=== PATIENT | female | born 1950 | race Caucasian/White ===

== ENCOUNTER 2016-08-30 06:16 | Inpatient (IN) | payer OTHER, MEDICARE, BC ==
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
--- NOTE | ~2016-08-30 | OR ---
Unit #: [id number] #: [id number] Patient: KYAW FALK [id number] [address] [place], [place] [address] [id number] I MR#: [id number] NAME: KYAW FALK. ROOM: 565 Date of Procedure: 09/02/2016 Admission Date: 08/31/2016 Surgeon: Mina Morales M.D. : 1950 Attending Physician: Jackson Hooks M.D. Primary Care Physician: Bhargavi Harp M.D. OPERATIVE REPORT PREOPERATIVE DIAGNOSIS Left proximal humerus fracture. POSTOPERATIVE DIAGNOSIS Left proximal humerus fracture. PROCEDURES PERFORMED 1. Left proximal humerus open reduction internal fixation. 2. Left long head biceps tendon tenotomy. [employer] Nasim Le CFA. ANESTHESIA General endotracheal. COMPLICATIONS None. SPECIMENS None. DRAINS None. SURGICAL IMPLANTS Renae [employer] proximal humerus locking plate. INDICATIONS FOR PROCEDURE Ms. Falk is a 66-year-old female patient who fell injuring her left shoulder. She was noted to have a significantly displaced proximal humerus fracture. She also has benefit from ORIF of the proximal humerus. The patient wished to proceed with surgery. She was cleared for surgery medically. Risks, benefits, and alternatives were discussed with the patient. Informed consent was obtained. Risks include, but not limited to, infection, bleeding, nerve injury, blood clots, risks associated with anesthesia, need for further surgery, persistent pain, and possibly . DESCRIPTION OF PROCEDURE On 09/02/2016, the patient was seen in preoperative holding area, where her surgical site was marked. Preoperative antibiotics were received. H Unit #: [id number] #: [id number] Patient: KYAW FALK and P consent updated. Preoperative block performed. The patient was taken to operating room and placed on operative table in supine position. General anesthesia was provided without complication. She was carefully moved to beach chair position. Left upper extremity was prepped and draped in typical sterile fashion. Time-out was performed confirming the correct surgical site and procedure. The deltopectoral approach performed the shoulder. Cephalic vein taken with the deltoid laterally. The fracture site identified and debrided. It was then provisionally reduced with K-wires. Fluoroscopy confirmed appropriate relative reduction. Plate was placed and pinned in place. Next, a bicortical shaft screw was placed to secure the shaft to the plate. Proximally, a combination of pegs and multidirectional screws were placed to capture the tuberosities in the head. The tuberosities were intact and there was no significant displacement of the rotator cuff. No sutures were needed through this. Three bicortical screws were placed distally. Multiple screws were placed unicortically through the humeral head. At this point, final imaging was taken of shoulder confirming appropriate reduction of fracture and placement of hardware. The wound was then thoroughly irrigated with normal saline containing bacitracin. Deltopectoral groove repaired with 0 Vicryl suture followed by 2-0 Vicryl for subcutaneous tissues and 3-0 Monocryl subcuticular stitch for skin. Dermabond, Telfa, Tegaderm, and a sling were placed. The patient was subsequently awakened from general anesthesia in stable condition and taken to PACU postoperatively. Also of note, the long head biceps tendon was caught within the fracture site. This was just at the groove. It was significantly enlarged. It was felt that a tenotomy would prevent catching of the tendon within the groove due to the fracture site. The tendon was released. No significant retraction noted. As noted, the patient went to the PACU. She did well. Postoperatively, she will return to the floor. POSTOPERATIVE PLAN The patient will be nonweightbearing in left upper extremity. She denied elbow motion pendulums. She will be on antibiotic protocol and can start DVT prophylaxis and SCDs. No complications were encountered during the surgical procedure. Dictated by... Mina Morales M.D. JOE/nick TD: 09/03/2016 05:08 JOB #: [id number] OPERATIVE REPORT X X PROCEDURE OPERATIVE NOTE
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
--- NOTE | ~2016-08-30 | CR229 ---
[facility] A Service of [facility] RADIOLOGY TEXT RESULTS PATIENT: KYAW GARCIA LOCATION: [facility] 565-01 : 51 UNIT #: [id number] AGE: [address]: Jackson Hooks MD SEX: F ORDER DR: [id number] [facility]. [place], [place] [address] [id number] I MR#: [id number] Acc #: [id number] NAME: KYAW GARCIA : 1950 SEX: F STUDY DATE/TIME: 09/02/2016 21:29 UNIT: [facility] ROOM: [facility] STUDY DESCRIPTION: CR Shoulder Min 2 View Lt Attending Physician: Jackson Hooks M.D. Ordering Physician: Mina Morales M.D. Primary Care Physician: Bhargavi Harp M.D. MEDICAL IMAGING REPORT This report is preliminary unless electronic signature is present EXAM Left shoulder 09/02/2016 INDICATION 66-year-old female with history of shoulder fracture. TECHNIQUE 3 small field of view spot fluoroscopic images from an intraoperative procedure performed by Dr. Morales are submitted for review. No comparisons. FINDINGS Notes indicate that 0.34 minutes of fluoroscopy time was used in the case. 3 images were saved to the [employer] system. Images demonstrate screw and plate fixation of a fracture involving the surgical neck of the humerus. There is no right or left marker. Please refer to the operative report of the surgeon for further details. IMPRESSION 1. Screw and plate fixation of a fracture of the surgical neck of the humerus. Please refer to the operative of the surgeon for further details. 2. Notes indicate 0.34 minutes of fluoroscopy time was used in the case. 3 images from the procedure were saved to the [employer] system. Dictated by... Aj Vargas M.D. THIS IS AN ELECTRONICALLY VERIFIED REPORT Aj Vargas M.D. at 09/02/2016 11:46 AM BETHANY/amelia [facility] A Service of [facility] RADIOLOGY TEXT RESULTS PATIENT: KYAW GARCIA LOCATION: [facility] 565-01 : 51 UNIT #: [id number] AGE: [address]: Jackson Hooks MD SEX: F ORDER DR: TD: 09/02/2016 10:50 JOB #: [id number] MEDICAL IMAGING REPORT COPY
--- NOTE | ~2016-08-30 | EKG ---
PATIENT: KYAW GARCIA UNIT #: [id number] Ventricular Rate: 102 BPM Atrial Rate: 102 BPM P-R Interval: 160 ms QRS Duration: 102 ms Q-T Interval: 450 ms QTC Calculation(Bezet): 586 ms P [place]: 45 degrees Calculated R [place]: 82 degrees Calculated T [place]: 0 degrees Diagnosis Line: Sinus tachycardia Diagnosis Line: Non-specific intra-ventricular conduction delay Diagnosis Line: ST and T wave abnormality, consider inferior Diagnosis Line: ischemia Diagnosis Line: Prolonged QT Diagnosis Line: Abnormal ECG Diagnosis Line: When compared with ECG of 24-JUN-2015 05:52, Diagnosis Line: Vent. rate has increased BY 46 BPM Diagnosis Line: Questionable change in QRS axis Diagnosis Line: T wave inversion now evident in Anterior leads Diagnosis Line: QT has lengthened Diagnosis Line: Confirmed by CAROLYN SIMS MD ([id number]) on Diagnosis Line: 08/31/2016 11:45:58 AM INTERPRETING MD: TEO
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
--- NOTE | ~2016-08-30 | CR229 ---
[facility] A Service of [facility] & [facility] RADIOLOGY TEXT RESULTS PATIENT: KYAW GARCIA LOCATION: [facility] [place] [facility] [id number] : [birth year] UNIT #: [id number] AGE: [address]: Jaycee Ewing MD SEX: F ORDER DR: [id number] [facility] [address]. [place], [place] [address] [id number] I MR#: [id number] Acc #: [id number] NAME: KYAW GARCIA : 1950 SEX: F STUDY DATE/TIME: 08/30/2016 7:30 UNIT: CEDOF ROOM: 65904 STUDY DESCRIPTION: CR Shoulder Min 2 View Lt Attending Physician: Jaycee Ewing M.D. Ordering Physician: Bg Henry M.D. Primary Care Physician: Bhargavi Harp M.D. MEDICAL IMAGING REPORT This report is preliminary unless electronic signature is present EXAM Left shoulder. HISTORY Fall three days ago with left shoulder pain. FINDINGS Three views of the left shoulder were obtained and compared with 08/27/2016. There is a recent fracture involving the humeral head with the humeral shaft having moved proximally and lying alongside the humeral head. It is difficult to tell if it is posterior or anterior on these images, but I believe it is anterior. IMPRESSION Recent fracture through the humeral neck as seen on a previous study 08/27/2016. On the current exam the humeral shaft has moved slightly more anteriorly and proximally as compared to the humeral head than on the previous study. Dictated by... Ricci Anaya M.D. THIS IS AN ELECTRONICALLY VERIFIED REPORT Ricci Anaya M.D. at 08/30/2016 1:15 PM PIYUSH/madai TD: 08/30/2016 10:48 JOB #: [id number] MEDICAL IMAGING REPORT COPY
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
[~2016-08-30 06:16] MED LIST: ABILIFY10 MG PO; ACETAMINOPHEN PO; ACETAMINOPHEN325 MG PO; ACETAMINOPHEN500 M7 PO; ALPRAZOLAM0.5 MG PO; ALPRAZOLAM1 MG PO; AMBIEN PO; AMBIEN10 MG PO; ANEXSIA 7.5/3251 TA1 PO; ASPIR-TRIN325 MG PO; ASPIRIN81 M2 PO; AVANDIA4 MG PO; BACTRIM DS TABL1 TA1 PO; BAYER ASPIRIN PO; BAYER CHEWABLE81 MG PO; BUDEPRION XL300 MG PO; BUMETANIDE1 MG PO; BUMETANIDE2 M1 PO; BUMEX PO; BUMEX1 MG PO; BUPROPION XL300 MG PO; BYDUREON2 MG SQ; BYDUREON2 MG SUBQ; BYETTA5 MCG/0.02 SQ; BYSTOLIC5 MG PO; CARVEDILOL3.125 MG PO; CELEBREX PO; CELEBREX100 MG PO; CLONAZEPAM2 MG PO; COREG3.125 MG PO; FAMOTIDINE PO; FAMOTIDINE20 M1 PO; FERRO-TIME325 MG PO; FISH OIL 1,0001 CAP PO; FLAGYL250 M1 PO; FORFIVO XL450 MG PO; GABAPENTIN300 M2 PO; GABAPENTIN400 M2 PO; GABAPENTIN600 MG PO; GLIPIZIDE10 MG PO; HALCION PO; HALCION0.25 M1 PO; HUMALOG100 U/M2 SQ; HUMALOG100 U/M2 SUBQ; HUMALOG100 U/ML SUBQ; HYDROCODON-ACE1 EAC9 PO; JANUVIA50 MG PO; K-DUR20 ME1 PO; KCL PO; KLONOPIN PO; KLONOPIN1 MG PO; KLONOPIN2 MG PO; LANTUS SOLOSTAR3 ML SQ; LANTUS SOLOSTAR3 ML SUBQ; LANTUS100 U/M1 SUBQ; LASIX PO; LIPITOR20 MG PO; LISINOPRIL PO; LISINOPRIL10 MG PO; LOPID600 MG PO; LORTAB 5/500 TA1 TA1 PO; LOW DOSE ASPIRI81 M1 PO; MELOXICAM15 MG PO; METFORMIN PO; METRONIDAZOLE PO; MOBIC15 MG PO; MONISTAT VG; MUPIROCIN0.9 GM TOP; MYLANTA125 MG PO; NAMENDA10 MG PO; NIACIN500 M1 PO; NITROGLYCERIN0.4 MG SL; NITROSTAT0.4 MG SL; NOVOLOG100 U/ML; NYSTATIN1 GM TOP; OXCARBAZEPINE600 MG PO; PENICILLIN V PO; PEPCID AC20 M2 PO; PEPCID PO; PLAVIX PO; PRILOSEC PO; PRILOSEC40 MG PO; PROBIOTIC1 EAC1 PO; PROBIOTIC1 EAC2 PO; PROZAC PO; SIMETHICONE GA125 MG PO; SIMVASTATIN40 MG PO; TRIAZOLAM0.25 M1 PO; TRIAZOLAM0.25 MG PO; TRICOR145 MG PO; TRILEPTAL PO; TRILEPTAL600 MG PO; TRUBIOTICS; VICODIN 5/1 TAB 5/50 PO; VICOPROFEN 200-1 TAB PO; VISTARIL PO; WELLBUTRIN PO; WELLBUTRIN XL PO; WELLBUTRIN XL150 M1 PO; XANAX0.5 M1 PO; ZANAFLEX4 M1 PO; ZESTRIL5 MG PO; ZOCOR PO; ZOCOR20 MG PO
[2016-08-30 07:05] LABS: POC - CKMB 1.5 ng/mL (0.0-7.9); POC - TROPONIN <0.05 ng/mL (<=0.05)
[2016-08-30 07:18] LABS: BASOPHIL% 0.3 % (0-2.5); EOSINOPHIL# 0.1 X10e3 (0-0.7); HEMOGLOBIN 12.2 gm/dL (12.0-16.0); LYMPHOCYTE# 1.1 X10e3 (1.0-3.5); LYMPHOCYTE% 13.9 % (17.0-45.0); MEAN CELL VOLUME 83.8 FL (83-96); MEAN CORPUSCULAR HEMOGLOBIN 29.1 PG (28-34); MEAN CORPUSCULAR HGB CONC 34.8 g/dL (30-36); MEAN PLATELET VOLUME 8.4 FL (6.5-11.5); MONOCYTE# 0.5 X10e3 (0-1.0); MONOCYTE% 6.5 % (3.0-12.0); NEUTROPHIL# 5.9 X10e3 (1.5-7.1); NEUTROPHIL% 78.3 % (40-75); RED BLOOD COUNT 4.18 X10e (3.90-5.30); RED CELL DISTRIBUTION WIDTH 15.1 % (11.0-15.5); WHITE BLOOD COUNT 7.6 X10e3 (4.0-10.5)
[2016-08-30 07:33] LABS: ALBUMIN SERUM 3.6 g/dL (3.5-5.0); ALKALINE PHOSPHATASE 110 U/L (32-92); ALT (SGPT) 17 U/L (10-40); AST (SGOT) 28 U/L (10-42); BILIRUBIN, DIRECT 0.7 mg/dL (0.0-0.2); BILIRUBIN,TOTAL 2.7 mg/dL (0.2-2.0); BLOOD UREA NITROGEN 12 mg/dL (9-23); CALCIUM SERUM 8.8 mg/dL (8.4-10.2); CARBON DIOXIDE 26 mmol/L (22-31); CHLORIDE 100 mmol/L (100-111); CPK (CREATINE PHOSPHOKINASE) 373 IU/L (26-140); CREATININE SERUM 0.8 mg/dL (0.6-1.4); GLOM FILT RATE Estimated ABOVE60 mL/min (>60); GLUCOSE FASTING 187 mg/dL (70-110); SODIUM 138 mmol/L (135-145)
[2016-08-30 08:04] LABS: DIFF IND YES; PLATELET COUNT 85 X10e3 (140-420)
[2016-08-30 08:17] LABS: URINE SOURCE CLEAN CATCH
[2016-08-30 08:24] LABS: URINE APPEARANCE CLEAR; URINE BILIRUBIN NEG (NEG); URINE BLOOD 2+ (NEG); URINE COLOR YELLOW; URINE GLUCOSE 250 MG/DL (NEG); URINE KETONE 1+ (NEG); URINE LEUKOCYTE ESTERASE NEG (NEG); URINE NITRATE NEG (NEG); URINE PROTEIN 1+ (NEG); URINE SPECIFIC GRAVITY 1.014 (1.003-1.035)
[2016-08-30 08:28] LABS: U HYALINE CASTS AUWI 0-2 /[LPF]; URBCS1 AUWI 0-2 /[HPF] (0-2); URINE BACTERIA AUWI NEG (NEGATIVE); URINE SQUAMOUS EPITHELIAL CELL OCC /[HPF]
[2016-08-30 08:28] LABS: PLATELET ESTIMATE DECREASED (NORMAL)
[2016-08-30 08:43] LABS: CULTURE INDICATED? NO
[2016-08-30] MEDS ORDERED: ZANAFLEX2 MG PO (10:08)
[2016-08-30] MEDS ORDERED: CLONAZEPAM0.5 MG PO (10:10)
[2016-08-30] MEDS ORDERED: KLONOPIN1 MG PO (10:11)
[2016-08-30] MEDS ORDERED: NORVASC PO (11:20)
[2016-08-30] MEDS ORDERED: CELECOXIB200 MG PO (11:21)
[2016-08-30] MEDS ORDERED: ANEXSIA 7.5/3251 TA1 PO (11:22)
[2016-08-30] MEDS ORDERED: LANTUS100 U/ML SUBQ (11:26)
[2016-08-30 20:21] LABS: %MB 0.3 % (0.0-4.0)
[2016-08-31 07:38] LABS: HEMATOCRIT 33.9 % (35.0-45.0); HEMOGLOBIN 11.4 gm/dL (12.0-16.0); MEAN CELL VOLUME 84.9 FL (83-96); MEAN CORPUSCULAR HEMOGLOBIN 28.6 PG (28-34); MEAN CORPUSCULAR HGB CONC 33.7 g/dL (30-36); MEAN PLATELET VOLUME 7.9 FL (6.5-11.5); RED CELL DISTRIBUTION WIDTH 15.2 % (11.0-15.5); WHITE BLOOD COUNT 5.9 X10e3 (4.0-10.5)
[2016-08-31 09:00] LABS: ALBUMIN SERUM 3.2 g/dL (3.5-5.0); ALKALINE PHOSPHATASE 121 U/L (32-92); ALT (SGPT) 18 U/L (10-40); AST (SGOT) 31 U/L (10-42); BILIRUBIN,TOTAL 2.1 mg/dL (0.2-2.0); BLOOD UREA NITROGEN 8 mg/dL (9-23); BUN/CREATININE RATIO 11.42; CALCIUM SERUM 8.2 mg/dL (8.4-10.2); CARBON DIOXIDE 26 mmol/L (22-31); CHLORIDE 104 mmol/L (100-111); CPK (CREATINE PHOSPHOKINASE) 710 IU/L (26-140); CREATININE SERUM 0.7 mg/dL (0.6-1.4); GLOM FILT RATE Estimated ABOVE60 mL/min (>60); GLUCOSE FASTING 133 mg/dL (70-110); MAGNESIUM 2.4 mg/dL (1.6-3.0); PROTEIN TOTAL SERUM 6.1 g/dL (6.0-8.3); SODIUM 140 mmol/L (135-145)
[2016-08-31 09:29] LABS: POTASSIUM 2.4 mmol/L (3.5-5.1)
[2016-09-01 07:05] LABS: HEMOGLOBIN 10.8 gm/dL (12.0-16.0); MEAN CELL VOLUME 85.2 FL (83-96); MEAN CORPUSCULAR HEMOGLOBIN 28.7 PG (28-34); MEAN CORPUSCULAR HGB CONC 33.7 g/dL (30-36); MEAN PLATELET VOLUME 7.9 FL (6.5-11.5); RED BLOOD COUNT 3.75 X10e (3.90-5.30); RED CELL DISTRIBUTION WIDTH 15.2 % (11.0-15.5); WHITE BLOOD COUNT 4.5 X10e3 (4.0-10.5)
[2016-09-01 07:38] LABS: BLOOD UREA NITROGEN 7 mg/dL (9-23); CALCIUM SERUM 8.4 mg/dL (8.4-10.2); CARBON DIOXIDE 23 mmol/L (22-31); CHLORIDE 110 mmol/L (100-111); CREATININE SERUM 0.7 mg/dL (0.6-1.4); GLOM FILT RATE Estimated ABOVE60 mL/min (>60); GLUCOSE FASTING 137 mg/dL (70-110); MAGNESIUM 2.1 mg/dL (1.6-3.0); POTASSIUM 3.2 mmol/L (3.5-5.1); SODIUM 141 mmol/L (135-145)
[2016-09-02 06:52] LABS: BLOOD UREA NITROGEN 9 mg/dL (9-23); CALCIUM SERUM 8.8 mg/dL (8.4-10.2); CARBON DIOXIDE 22 mmol/L (22-31); CHLORIDE 109 mmol/L (100-111); CREATININE SERUM 0.6 mg/dL (0.6-1.4); GLOM FILT RATE Estimated ABOVE60 mL/min (>60); GLUCOSE FASTING 155 mg/dL (70-110); MAGNESIUM 1.9 mg/dL (1.6-3.0); POTASSIUM 3.5 mmol/L (3.5-5.1); SODIUM 141 mmol/L (135-145)
[2016-09-03 05:19] LABS: HEMATOCRIT 30.9 % (35.0-45.0); HEMOGLOBIN 10.6 gm/dL (12.0-16.0); MEAN CELL VOLUME 84.2 FL (83-96); MEAN CORPUSCULAR HEMOGLOBIN 28.8 PG (28-34); MEAN CORPUSCULAR HGB CONC 34.2 g/dL (30-36); MEAN PLATELET VOLUME 7.2 FL (6.5-11.5); RED BLOOD COUNT 3.67 X10e (3.90-5.30); RED CELL DISTRIBUTION WIDTH 15.2 % (11.0-15.5); WHITE BLOOD COUNT 5.7 X10e3 (4.0-10.5)
[2016-09-03 06:06] LABS: BLOOD UREA NITROGEN 8 mg/dL (9-23); CALCIUM SERUM 8.1 mg/dL (8.4-10.2); CARBON DIOXIDE 24 mmol/L (22-31); CHLORIDE 106 mmol/L (100-111); CREATININE SERUM 0.4 mg/dL (0.6-1.4); GLOM FILT RATE Estimated ABOVE60 mL/min (>60); GLUCOSE FASTING 175 mg/dL (70-110); POTASSIUM 3.7 mmol/L (3.5-5.1); SODIUM 136 mmol/L (135-145)
[2016-09-04 07:04] LABS: HEMATOCRIT 32.3 % (35.0-45.0); MEAN CELL VOLUME 84.4 FL (83-96); MEAN CORPUSCULAR HEMOGLOBIN 28.8 PG (28-34); MEAN CORPUSCULAR HGB CONC 34.2 g/dL (30-36); MEAN PLATELET VOLUME 7.5 FL (6.5-11.5); RED BLOOD COUNT 3.82 X10e (3.90-5.30); RED CELL DISTRIBUTION WIDTH 15.5 % (11.0-15.5); WHITE BLOOD COUNT 5.8 X10e3 (4.0-10.5)
[2016-09-04 07:52] LABS: BLOOD UREA NITROGEN 8 mg/dL (9-23); BUN/CREATININE RATIO 11.42; CALCIUM SERUM 8.6 mg/dL (8.4-10.2); CARBON DIOXIDE 24 mmol/L (22-31); CHLORIDE 106 mmol/L (100-111); CREATININE SERUM 0.7 mg/dL (0.6-1.4); GLOM FILT RATE Estimated ABOVE60 mL/min (>60); GLUCOSE FASTING 122 mg/dL (70-110); POTASSIUM 3.5 mmol/L (3.5-5.1); SODIUM 140 mmol/L (135-145)
[2016-09-05 06:26] LABS: HEMATOCRIT 31.6 % (35.0-45.0); HEMOGLOBIN 10.7 gm/dL (12.0-16.0); MEAN CELL VOLUME 84.5 FL (83-96); MEAN CORPUSCULAR HEMOGLOBIN 28.7 PG (28-34); MEAN PLATELET VOLUME 7.8 FL (6.5-11.5); RED BLOOD COUNT 3.74 X10e (3.90-5.30); RED CELL DISTRIBUTION WIDTH 15.5 % (11.0-15.5); WHITE BLOOD COUNT 4.9 X10e3 (4.0-10.5)
[2016-09-05 07:12] LABS: BLOOD UREA NITROGEN 10 mg/dL (9-23); BUN/CREATININE RATIO 16.66; CARBON DIOXIDE 28 mmol/L (22-31); CHLORIDE 105 mmol/L (100-111); CREATININE SERUM 0.6 mg/dL (0.6-1.4); GLOM FILT RATE Estimated ABOVE60 mL/min (>60); GLUCOSE FASTING 201 mg/dL (70-110); SODIUM 139 mmol/L (135-145)
[2016-09-06 06:35] LABS: HEMATOCRIT 31.5 % (35.0-45.0); HEMOGLOBIN 10.6 gm/dL (12.0-16.0); MEAN CELL VOLUME 84.6 FL (83-96); MEAN CORPUSCULAR HEMOGLOBIN 28.4 PG (28-34); MEAN CORPUSCULAR HGB CONC 33.6 g/dL (30-36); RED BLOOD COUNT 3.73 X10e (3.90-5.30); RED CELL DISTRIBUTION WIDTH 15.3 % (11.0-15.5); WHITE BLOOD COUNT 5.3 X10e3 (4.0-10.5)
[2016-09-06] MEDS ORDERED: ACETAMINOPHEN PO (13:43)
[2016-09-06] MEDS ORDERED: KLONOPIN PO (13:47)
[2016-09-06] MEDS ORDERED: MYRBETRIQ50 MG PO (13:51)
[2016-09-06] MEDS ORDERED: SENOKOT S1 TA1 PO (13:52)
[2016-09-06] MEDS ORDERED: BISACODYL EC5 MG PO (13:53)
[2016-09-06] MEDS ORDERED: COREG6.25 MG PO (14:04)
== END 2016-09-06 19:57 | disposition home health service (06) | DRG 493 ==
LOC: CED 06:16 → CEDOF 09:40 → C5C 08-31 13:55
PROVIDERS: Emergency Medicine; Family Medicine; Internal Medicine; Orthopaedic Surgery
PROC: B24BYZZ Ultrasonography of Heart with Aorta using Other Contrast (ICD-10-PCS; 2016-08-31)
PROC: 0LN20ZZ Release Left Shoulder Tendon, Open Approach (ICD-10-PCS; 2016-09-02)
PROC: 0PSG04Z Reposition Left Humeral Shaft with Internal Fixation Device, Open Approach (ICD-10-PCS; principal; 2016-09-02 07:30)
DX: S42.212A Unspecified displaced fracture of surgical neck of left humerus, initial encounter for closed fracture (principal); M62.82 Rhabdomyolysis; E11.42 Type 2 diabetes mellitus with diabetic polyneuropathy; W18.30XA Fall on same level, unspecified, initial encounter; Z91.81 History of falling; E87.6 Hypokalemia; D69.6 Thrombocytopenia, unspecified; K21.9 Gastro-esophageal reflux disease without esophagitis; G47.33 Obstructive sleep apnea (adult) (pediatric); I25.10 Atherosclerotic heart disease of native coronary artery without angina pectoris; Z95.5 Presence of coronary angioplasty implant and graft; F31.9 Bipolar disorder, unspecified; F41.9 Anxiety disorder, unspecified; G89.29 Other chronic pain; Z79.4 Long term (current) use of insulin; Z79.82 Long term (current) use of aspirin; V49.9XXD Car occupant (driver) (passenger) injured in unspecified traffic accident, subsequent encounter; D64.9 Anemia, unspecified; I34.1 Nonrheumatic mitral (valve) prolapse; R32 Unspecified urinary incontinence
CPT/HCPCS: 36415; 73030; 73200; 76001; 80048; 80053; 80076; 81003; 82550; 82553; 82947; 83036; 83735; 84132; 84484; 85025; 85027; 93005; 93306; 94760; 96360; 97110; 97116; 97163; 97167; 97530; 97535; 99285; C1713; G8978-GP; G8979-GP; G8987-GO; G8988-GO; J0330; J0360; J0690; J1170; J1650; J1815; J1885; J2250; J2370; J2405; J2710; J3010; J3475

== ENCOUNTER 2016-12-22 14:53 | Emergency (ER) | payer MEDICARE, BC ==
--- NOTE | ~2016-12-22 | CT4 ---
[facility] A Service of [facility] & [facility] RADIOLOGY TEXT RESULTS PATIENT: KYAW GARCIA LOCATION: [facility] : [birth year] UNIT #: [id number] AGE: [address]: Bg Henry MD SEX: F ORDER DR: [id number] [facility] [address] [place], [place] [address] [id number] MR#: [id number] Acc #: [id number] NAME: KYAW GARCIA : 1950 SEX: F STUDY DATE/TIME: 12/22/2016 17:25 UNIT: [facility] ROOM: STUDY DESCRIPTION: CT Abd and Pelv Wo Cont Attending Physician: Bg Henry M.D. Ordering Physician: Bg Henry M.D. Primary Care Physician: Bhargavi Harp M.D. MEDICAL IMAGING REPORT This report is preliminary unless electronic signature is present EXAMINATION CT abdomen and pelvis without contrast. DATE 12/22/2016 HISTORY 66-year-old female with right flank pain, abdominal pain and back pain for 1 month. Diabetes. Hypertension. Cardiac disease. History of coronary artery stents. Cholecystectomy, hysterectomy. COMPARISON CT abdomen and pelvis without contrast, 02/17/2014. PROCEDURE 5 mm noncontrast axial images through the abdomen and pelvis. Enteric contrast was not administered. Sagittal and coronal reformatted images were obtained. This CT exam was performed with one or more of the following radiation dose reduction techniques: automatic exposure control, adjustment of mA and/or kV according to patient size, and iterative reconstruction. FINDINGS ABDOMEN FINDINGS: Lung bases are clear. The gallbladder is surgically absent. Liver is enlarged measuring 19.3 cm craniocaudally. Spleen is enlarged measuring 17.4 cm craniocaudally. Liver and spleen, findings are not appreciably changed from 2013. Pancreas and adrenal glands are normal. Right renal cyst measures 2 cm (Hounsfield units -1.1). Bilobed cyst projects exophytically from the left lower renal pole measuring 2.1 cm in aggregate (Hounsfield units 7.5). No ureteral stone or hydronephrosis is seen. 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 Unopacified bowel appears grossly nonthickened, nondilated, and noninflamed. No adenopathy or free STS. [facility] A Service of [facility] & [facility] RADIOLOGY TEXT RESULTS PATIENT: KY[id number] [birth year] UNIT #: [id number] AGE: [address]: Bg Henry MD SEX: F ORDER DR: fluid is identified. PELVIS FINDINGS: Urinary bladder and rectum are normal. Hysterectomy. Suspected rectocele. Multilevel chronic compression fractures involving L3, L1, T12. Severe degenerative disc and endplate changes with sclerosis and subchondral cystic change at T9-10. The appendix is normal. IMPRESSION 1. No acute findings within the abdomen or pelvis. 2. The appendix is normal. 3. No urinary tract stone or hydronephrosis. 4. Severe degenerative disc and endplate changes at T9-10. Chronic compression deformities of T12, L1, L3. 5. Stable splenomegaly since 02/17/2014. 6. Hysterectomy. Suspected small rectocele. 7. Bilateral renal cysts. 8. 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 9. Cholecystectomy. Dictated by... Jenn Edmond M.D. THIS IS AN ELECTRONICALLY VERIFIED REPORT Jenn Edmond M.D. at 12/23/2016 8:36 AM JORGE/shalini TD: 12/22/2016 18:07 JOB #: [id number] MEDICAL IMAGING REPORT Page 1 of 1 COPY
[~2016-12-22 14:53] MED LIST changes: +BISACODYL EC5 MG PO; +CELECOXIB200 MG PO; +CLONAZEPAM0.5 MG PO; +COREG6.25 MG PO; +LANTUS100 U/ML SUBQ; +MYRBETRIQ50 MG PO; +NORVASC PO; +SENOKOT S1 TA1 PO; +ZANAFLEX2 MG PO
[2016-12-22 15:44] LABS: BASOPHIL% 0.6 % (0-2.5); EOSINOPHIL# 0.2 X10e3 (0-0.7); EOSINOPHIL% 3.1 % (0.0-7.0); HEMATOCRIT 39.8 % (35.0-45.0); HEMOGLOBIN 13.6 gm/dL (12.0-16.0); LYMPHOCYTE# 2.6 X10e3 (1.0-3.5); LYMPHOCYTE% 35.3 % (17.0-45.0); MEAN CELL VOLUME 83.6 FL (83-96); MEAN CORPUSCULAR HEMOGLOBIN 28.5 PG (28-34); MEAN CORPUSCULAR HGB CONC 34.1 g/dL (30-36); MEAN PLATELET VOLUME 8.2 FL (6.5-11.5); MONOCYTE# 0.5 X10e3 (0-1.0); MONOCYTE% 6.8 % (3.0-12.0); NEUTROPHIL% 54.2 % (40-75); PLATELET COUNT 112 X10e3 (140-420); RED BLOOD COUNT 4.76 X10e (3.90-5.30); RED CELL DISTRIBUTION WIDTH 14.7 % (11.0-15.5); WHITE BLOOD COUNT 7.4 X10e3 (4.0-10.5)
[2016-12-22 15:49] LABS: DIFF IND NO
[2016-12-22 16:10] LABS: ALBUMIN SERUM 4.1 g/dL (3.5-5.0); BILIRUBIN, DIRECT 0.2 mg/dL (0.0-0.2); BILIRUBIN,INDIRECT 0.9 mg/dL (0.0-0.9); BILIRUBIN,TOTAL 1.1 mg/dL (0.2-2.0); CALCIUM SERUM 9.6 mg/dL (8.4-10.2); GLOM FILT RATE Estimated 59.1 mL/min (>60); POTASSIUM 3.9 mmol/L (3.5-5.1); PROTEIN TOTAL SERUM 7.3 g/dL (6.0-8.3)
[2016-12-22 16:40] LABS: URINE SOURCE CLEAN CATCH
[2016-12-22 16:44] LABS: URINE APPEARANCE CLEAR; URINE BILIRUBIN NEG (NEG); URINE BLOOD NEG (NEG); URINE COLOR YELLOW; URINE GLUCOSE NEG (NEG); URINE KETONE NEG (NEG); URINE LEUKOCYTE ESTERASE NEG (NEG); URINE NITRATE NEG (NEG); URINE PROTEIN TRACE (NEG); URINE UROBILINOGEN 0.2 MG/DL (NEG)
[2016-12-22 16:49] LABS: CULTURE INDICATED? NO
== END 2016-12-22 18:33 | disposition home or self-care (01) ==
LOC: CED 14:53
DX: R10.11 Right upper quadrant pain (principal); E11.40 Type 2 diabetes mellitus with diabetic neuropathy, unspecified; K21.9 Gastro-esophageal reflux disease without esophagitis; E78.5 Hyperlipidemia, unspecified; F31.9 Bipolar disorder, unspecified; M10.9 Gout, unspecified; Z90.710 Acquired absence of both cervix and uterus; F17.200 Nicotine dependence, unspecified, uncomplicated
CPT/HCPCS: 36415; 74176; 80048; 80076; 81003; 83690; 85025; 99284